=== PATIENT | male | born 1965 | race American Indian/Alaskan Native ===

== ENCOUNTER 2020-02-25 17:15 | Emergency (ER) | payer MEDICARE, MEDICAID ==
[~2020-02-25 17:15] MED LIST: Sodium Chloride 0.9% 10 ML Syringe FLUSH PRN
[2020-02-25] MEDS ORDERED: Metoprolol Tartrate 5 MG/5 ML SDV IV ONE (17:16)
--- NOTE | 2020-02-25 17:23 | EDM.PDOC ---
"ED HPI GENERAL MEDICAL PROBLEM - General Source of Information: Reports: EMS, Group Home Records, RN, RN Notes Reviewed History Limitations: Reports: No Limitations <RupertKaylanJackie Rupa - Last Filed: 02/25/20 19:43> <Ángela Black - Last Filed: 02/26/20 00:29> - General Chief Complaint: Neurological Problem Stated Complaint: IN BY [facility] Time Seen by Provider: 02/25/20 17:20 - History of Present Illness INITIAL COMMENTS - FREE TEXT/NARRATIVE: Patient presents to the ED via EMS from [facility] for seizure activity and fever. Per EMS report the patient had three witnessed seizures this afternoon at the [facility] and one witnessed seizure in the ambulance on the way to the ED. The patient does have a history of seizures following a TBI for which he takes Depakote. He presents to the ED pos-ictal following Ativan 4mg IM. (Jackie Emery) - Related Data Allergies Allergy/AdvReac Type Severity Reaction Status Date / Time No Known Allergies Allergy Verified 11/24/14 12:00 Home Meds: Home Meds Acetaminophen [Tylenol] 325 mg PO ASDIRECTED 02/25/20 [History] Divalproex Sodium [Depakote ER] 250 mg PO 02/25/20 [History] Divalproex Sodium [Depakote ER] 500 mg PO ASDIRECTED 02/25/20 [History] Magnesium Hydroxide [Milk of Magnesia] 15 ml PO DAILY PRN 02/25/20 [History] Sertraline [Zoloft] 100 mg PO BEDTIME 02/25/20 [History] atorvaSTATin Calcium [Atorvastatin Calcium] 10 mg PO 02/25/20 [History] bisacodyL [Dulcolax] 10 mg RC ASDIRECTED 02/25/20 [History] metFORMIN HCl [Glucophage] 1,000 mg PO BID 02/25/20 [History] ED ROS GENERAL - Review of Systems Review Of Systems: Comprehensive ROS is negative, except as noted in HPI. <Jackie Emery - Last Filed: 02/25/20 19:43> - Physical Exam Exam: See Below Exam Limited By: Altered Mental Status General Appearance: Obtunded, Moderate Distress Eye Exam: Bilateral Eye: PERRL Respiratory/Chest: Decreased Breath Sounds, Crackles. No: Wheezing, Stridor, Retractions Cardiovascular: Tachycardia Neuro Exam (Abbreviated): Other (Post-ictal). No: Alert, Oriented, CN II-XII Intact Extremities: No Pedal Edema, Normal Capillary Refill Skin Exam: Warm, Diaphoretic. No: Mottled, Pallor, Petechiae, Rash <Jackie Emery - Last Filed: 02/25/20 19:43> #1 Interpretation EKG Date: 02/25/20 Time: 17:23 Rhythm: Other Rate (Beats/Min): 127 [place]: LAD-Left [place] Deviation P-Wave: Present QRS: Wide ST-T: Depressed QT: Prolonged Comparison: NA - No Prior EKG <Jackie Emery - Last Filed: 02/25/20 19:43> Course <Jackie Emery - Last Filed: 02/25/20 19:43> <Ángela Black - Last Filed: 02/26/20 00:29> - Vital Signs Last Recorded V/S: Last Vital Signs Temp 98.7 F 02/25/20 19:36 Pulse 125 H 02/25/20 21:00 Resp 20 02/25/20 21:00 BP 170/91 H 02/25/20 21:00 Pulse Ox 97 02/25/20 21:00 - Orders/Labs/Meds Orders: Active Orders 24 hr Category Date Time Status CULTURE BLOOD [BC] Stat Lab 02/25/20 17:18 Received CULTURE BLOOD [BC] Stat Lab 02/25/20 19:33 Received VALPROIC ACID [REF] Stat Lab 02/25/20 17:18 Received Isolation [COMM] Routine Oth 02/25/20 20:07 Active Peripheral IV Insertion Adult [OM.PC] Stat Oth 02/25/20 17:08 Ordered Labs: Laboratory Tests 02/25/20 02/25/20 02/25/20 Range/Units 17:18 17:18 17:18 WBC 16.0 H (5.0-10.0) 10^3/uL RBC 5.02 (4.6-6.2) 10^6/uL Hgb 14.5 (14.0-18.0) g/dL Hct 42.5 (40.0-54.0) % MCV 84.7 (80-100) fL MCH 28.9 (27.0-34.0) pg MCHC 34.1 (33.0-35.0) g/dL Plt Count 248 (150-450) 10^3/uL Neut % (Auto) 72.6 (42.2-75.2) % Lymph % (Auto) 21.7 (20.5-50.1) % Coleman % (Auto) 5.1 (2-8) % Eos % (Auto) 0.4 L (1.0-3.0) % Baso % (Auto) 0.2 (0.0-1.0) % Sodium 130 L (136-145) mmol/L Potassium 4.2 (3.5-5.1) mmol/L Chloride 92 L (98-107) mmol/L Carbon Dioxide 25 (21-32) mmol/L Anion Gap 17.2 H (7-13) mEq/L BUN 8 (7-18) mg/dL Creatinine 1.05 (0.70-1.30) mg/dL Est Cr Clr Drug Dosing 87.25 mL/min Estimated GFR (MDRD) > 60 BUN/Creatinine Ratio 7.6 (No establ ref range) Glucose 252 H (74-99) mg/dL Lactic Acid 6.1 H* (0.4-2.0) mmol/L Calcium 8.5 (8.5-10.1) mg/dL Total Bilirubin 0.2 (0.2-1.0) mg/dL AST 21 (15-37) U/L ALT 52 (16-63) U/L Alkaline Phosphatase 107 (46-116) U/L Troponin I (0.000-0.056) ng/mL Total Protein 8.4 H (6.4-8.2) g/dL Albumin 4.2 (3.4-5.0) g/dL Globulin 4.2 Albumin/Globulin Ratio 1.0 Urine Color (YELLOW) Urine Appearance (CLEAR) Urine pH (5.0-9.0) Ur Specific [place] (1.005-1.030) Urine Protein (NEGATIVE) Urine Glucose (UA) (NEGATIVE) Urine Ketones (NEGATIVE) Urine Occult Blood (NEGATIVE) Urine Nitrite (NEGATIVE) Urine Bilirubin (NEGATIVE) Urine Urobilinogen (0.2-1.0) mg/dL Ur Leukocyte Esterase (NEGATIVE) U Hyaline Cast (Auto) Urine RBC /HPF Urine WBC (0-5/HPF) /HPF Ur Epithelial Cells (NOT SEEN) /HPF Amorphous Sediment (NOT SEEN) /HPF Urine Bacteria (0-FEW/HPF) /HPF Fine Granular Casts (NOT SEEN) /LPF Urine Mucus (NOT SEEN) /LPF Urine Opiates Screen (NEGATIVE) Ur Oxycodone Screen (NEGATIVE) Urine Methadone Screen (NEGATIVE) Ur Barbiturates Screen (NEGATIVE) U Tricyclic Antidepress (NEGATIVE) Ur Phencyclidine Scrn (NEGATIVE) Ur Amphetamine Screen (NEGATIVE) U Methamphetamines Scrn (NEGATIVE) Urine MDMA Screen (NEGATIVE) U Benzodiazepines Scrn (NEGATIVE) Urine Cocaine Screen (NEGATIVE) U Marijuana (THC) Screen (NEGATIVE) SARS CoV-2 RNA Rapid GERALDINE (NEGATIVE) 02/25/20 02/25/20 02/25/20 Range/Units 17:18 17:18 18:08 WBC (5.0-10.0) 10^3/uL RBC (4.6-6.2) 10^6/uL Hgb (14.0-18.0) g/dL Hct (40.0-54.0) % MCV (80-100) fL MCH (27.0-34.0) pg MCHC (33.0-35.0) g/dL Plt Count (150-450) 10^3/uL Neut % (Auto) (42.2-75.2) % Lymph % (Auto) (20.5-50.1) % Coleman % (Auto) (2-8) % Eos % (Auto) (1.0-3.0) % Baso % (Auto) (0.0-1.0) % Sodium (136-145) mmol/L Potassium (3.5-5.1) mmol/L Chloride (98-107) mmol/L Carbon Dioxide (21-32) mmol/L Anion Gap (7-13) mEq/L BUN (7-18) mg/dL Creatinine (0.70-1.30) mg/dL Est Cr Clr Drug Dosing mL/min Estimated GFR (MDRD) BUN/Creatinine Ratio (No establ ref range) Glucose (74-99) mg/dL Lactic Acid (0.4-2.0) mmol/L Calcium (8.5-10.1) mg/dL Total Bilirubin (0.2-1.0) mg/dL AST (15-37) U/L ALT (16-63) U/L Alkaline Phosphatase (46-116) U/L Troponin I < 0.017 (0.000-0.056) ng/mL Total Protein (6.4-8.2) g/dL Albumin (3.4-5.0) g/dL Globulin Albumin/Globulin Ratio Urine Color Yellow (YELLOW) Urine Appearance Slightly cloudy (CLEAR) Urine pH 6.5 (5.0-9.0) Ur Specific [place] >= 1.030 (1.005-1.030) Urine Protein 100 H (NEGATIVE) Urine Glucose (UA) 500 H (NEGATIVE) Urine Ketones Trace H (NEGATIVE) Urine Occult Blood Moderate H (NEGATIVE) Urine Nitrite Negative (NEGATIVE) Urine Bilirubin Negative (NEGATIVE) Urine Urobilinogen 0.2 (0.2-1.0) mg/dL Ur Leukocyte Esterase Negative (NEGATIVE) U Hyaline Cast (Auto) Few Urine RBC 10-20 H /HPF Urine WBC 0-5 (0-5/HPF) /HPF Ur Epithelial Cells Rare (NOT SEEN) /HPF Amorphous Sediment Few (NOT SEEN) /HPF Urine Bacteria Rare (0-FEW/HPF) /HPF Fine Granular Casts Occasional H (NOT SEEN) /LPF Urine Mucus Few H (NOT SEEN) /LPF Urine Opiates Screen (NEGATIVE) Ur Oxycodone Screen (NEGATIVE) Urine Methadone Screen (NEGATIVE) Ur Barbiturates Screen (NEGATIVE) U Tricyclic Antidepress (NEGATIVE) Ur Phencyclidine Scrn (NEGATIVE) Ur Amphetamine Screen (NEGATIVE) U Methamphetamines Scrn (NEGATIVE) Urine MDMA Screen (NEGATIVE) U Benzodiazepines Scrn (NEGATIVE) Urine Cocaine Screen (NEGATIVE) U Marijuana (THC) Screen (NEGATIVE) SARS CoV-2 RNA Rapid GERALDINE Negative (NEGATIVE) 02/25/20 Range/Units 18:08 WBC (5.0-10.0) 10^3/uL RBC (4.6-6.2) 10^6/uL Hgb (14.0-18.0) g/dL Hct (40.0-54.0) % MCV (80-100) fL MCH (27.0-34.0) pg MCHC (33.0-35.0) g/dL Plt Count (150-450) 10^3/uL Neut % (Auto) (42.2-75.2) % Lymph % (Auto) (20.5-50.1) % Coleman % (Auto) (2-8) % Eos % (Auto) (1.0-3.0) % Baso % (Auto) (0.0-1.0) % Sodium (136-145) mmol/L Potassium (3.5-5.1) mmol/L Chloride (98-107) mmol/L Carbon Dioxide (21-32) mmol/L Anion Gap (7-13) mEq/L BUN (7-18) mg/dL Creatinine (0.70-1.30) mg/dL Est Cr Clr Drug Dosing mL/min Estimated GFR (MDRD) BUN/Creatinine Ratio (No establ ref range) Glucose (74-99) mg/dL Lactic Acid (0.4-2.0) mmol/L Calcium (8.5-10.1) mg/dL Total Bilirubin (0.2-1.0) mg/dL AST (15-37) U/L ALT (16-63) U/L Alkaline Phosphatase (46-116) U/L Troponin I (0.000-0.056) ng/mL Total Protein (6.4-8.2) g/dL Albumin (3.4-5.0) g/dL Globulin Albumin/Globulin Ratio Urine Color (YELLOW) Urine Appearance (CLEAR) Urine pH (5.0-9.0) Ur Specific [place] (1.005-1.030) Urine Protein (NEGATIVE) Urine Glucose (UA) (NEGATIVE) Urine Ketones (NEGATIVE) Urine Occult Blood (NEGATIVE) Urine Nitrite (NEGATIVE) Urine Bilirubin (NEGATIVE) Urine Urobilinogen (0.2-1.0) mg/dL Ur Leukocyte Esterase (NEGATIVE) U Hyaline Cast (Auto) Urine RBC /HPF Urine WBC (0-5/HPF) /HPF Ur Epithelial Cells (NOT SEEN) /HPF Amorphous Sediment (NOT SEEN) /HPF Urine Bacteria (0-FEW/HPF) /HPF Fine Granular Casts (NOT SEEN) /LPF Urine Mucus (NOT SEEN) /LPF Urine Opiates Screen Negative (NEGATIVE) Ur Oxycodone Screen Negative (NEGATIVE) Urine Methadone Screen Negative (NEGATIVE) Ur Barbiturates Screen Negative (NEGATIVE) U Tricyclic Antidepress Negative (NEGATIVE) Ur Phencyclidine Scrn Negative (NEGATIVE) Ur Amphetamine Screen Negative (NEGATIVE) U Methamphetamines Scrn Negative (NEGATIVE) Urine MDMA Screen Negative (NEGATIVE) U Benzodiazepines Scrn Negative (NEGATIVE) Urine Cocaine Screen Negative (NEGATIVE) U Marijuana (THC) Screen Negative (NEGATIVE) SARS CoV-2 RNA Rapid GERALDINE (NEGATIVE) Meds: Medications Discontinued Medications Generic Name Dose Route Start Last Admin Trade Name Freq PRN Reason Stop Dose Admin Acetaminophen 650 mg 02/25/20 19:31 02/25/20 19:36 Tylenol RECTAL 02/25/20 19:32 650 mg NOW STA Administration Adenosine Confirm 02/25/20 17:38 02/25/20 18:27 Adenocard Administered 02/25/20 17:39 Not Given Dose 6 mg .ROUTE .STK-MED ONE Sodium Chloride 1,000 mls @ 999 mls/hr 02/25/20 18:05 02/25/20 17:45 Normal Saline IV 02/25/20 19:05 999 mls/hr .BOLUS ONE Administration Piperacillin Sod/Tazobactam 100 mls @ 200 mls/hr 02/25/20 19:16 02/25/20 19:26 Sod 3.375 gm/ Sodium Chloride IV 02/25/20 19:45 200 mls/hr ONETIME ONE Administration Vancomycin HCl 1.75 gm/ Sodium 500 mls @ 334 mls/hr 02/25/20 19:17 02/25/20 19:47 Chloride IV 02/25/20 20:46 334 mls/hr ONETIME ONE Administration Levetiracetam 1,000 mg/ Premix 200 mls @ 800 mls/hr 02/25/20 19:19 02/25/20 19:26 IV 02/25/20 19:20 800 mls/hr ONETIME ONE Administration Metoprolol Tartrate Confirm 02/25/20 17:43 02/25/20 18:27 Lopressor Administered 02/25/20 17:44 Not Given Dose 5 mg .ROUTE .STK-MED ONE Metoprolol Tartrate 2.5 mg 02/25/20 17:45 02/25/20 17:45 Lopressor IVPUSH 02/25/20 17:46 2.5 mg ONETIME ONE Administration Sodium Chloride 10 ml 02/25/20 17:08 Saline Flush FLUSH ASDIRECTED PRN Keep Vein Open - Radiology Interpretation Free Text/Narrative:: [facility] [place] [facility] Final Radiology Report Call: [phone] assistance Online chat: [email or web address] Name: JAVIER TESFAYE Age: 54Years M Date: 02/25/2020 SSN: -- : [id number] Study: CT HEAD WO CONT Requesting Physician: Jackie Emery Images: [id number] Addl Studies: Provided Clinical History: Seizure Contrast: Without Contrast Medium: Contrast Amount: Contrast Method: Page 1 of 2 PROCEDURE INFORMATION: Exam: CT Head Without Contrast Exam date and time: 02/25/2020 6:10 PM Age: 54 years old Clinical indication: Other: Seizure TECHNIQUE: Imaging protocol: Computed tomography of the head without contrast. Radiation optimization: All CT scans at this facility use at least one of these dose optimization techniques: automated exposure control; mA and/or kV adjustment per patient size (includes targeted exams where dose is matched to clinical indication); or iterative reconstruction. COMPARISON: No relevant prior studies available. FINDINGS: Brain: There is extensive loss of brain substance/atrophy involving the temporal lobes bilaterally left greater than right. May be sequela of prior infarctions and or atrophy. Old infarction/atrophy extends into the right frontal lobe of the brain as well. Cerebral ventricles: No ventriculomegaly. Bones/joints: There is some deformity with lucency along the right aspect of the nasal bone. Probably longstanding however correlate for point tenderness are any recent trauma in this region. Paranasal sinuses: Visualized sinuses are unremarkable. No fluid levels. Mastoid air cells: Visualized mastoid air cells are well aerated. Soft tissues: Unremarkable. IMPRESSION: 1. Marked brain substance loss/atrophy involving both right and left temporal lobes as well as a portion of the right frontal lobe compatible with old infarctions and/or extensive atrophy. 2. No definite evidence for acute intracranial hemorrhage. JAVIER TESFAYE | Final Radiology Report CONFIDENTIALITY STATEMENT This report is intended only for use by the referring physician, and only in accordance with law. If you received this in error, call [phone]. Page 2 of 2 3. MRI would be more sensitive in the detection of acute ischemia especially in this patient with extensive temporal lobe abnormality. 4. Deformity/lucency along the right aspect of the nasal bone may be longstanding, however correlate for any point tenderness or acute trauma in this region to exclude a small fracture. Thank you for allowing us to participate in the care of your patient. Dictated and Authenticated by: Agustin Peterson MD 02/25/2020 6:46 PM Central Time ([place] & [place]) [facility] Final Radiology Report Call: [phone] assistance Online chat: [email or web address] Name: JAVIER TESFAYE Age: 54Years M Date: 02/25/2020 SSN: -- : [id number] Study: CT CHEST WO CONT Requesting Physician: Jackie Emery Images: [id number] Addl Studies: Provided Clinical History: Elevated WBC Contrast: Without Contrast Medium: Contrast Amount: Contrast Method: Page 1 of 2 PROCEDURE INFORMATION: Exam: CT Chest Without Contrast Exam date and time: 02/25/2020 6:10 PM Age: 54 years old Clinical indication: Other: Seizure; Additional info: Elevated wbc TECHNIQUE: Imaging protocol: Computed tomography of the chest without contrast. Radiation optimization: All CT scans at this facility use at least one of these dose optimization techniques: automated exposure control; mA and/or kV adjustment per patient size (includes targeted exams where dose is matched to clinical indication); or iterative reconstruction. COMPARISON: No relevant prior studies available. FINDINGS: Lungs: Linear atelectasis or scarring at each lung base. No significant ground- glass densities, linear interstitial pulmonary thickening, or consolidation. Pleural space: There is no significant effusion. No pneumothorax. No mass, plaque or calcification. Heart: Normal heart size. No pericardial effusion. Mediastinal space: No pneumomediastinum, hemomediastinum, or stranding of retrosternal fat. Aorta: No aortic aneurysm. Lymph nodes: No enlarged axillary, mediastinal, or hilar lymph nodes. Liver: There is moderate fatty liver replacement. Bones/joints: Incidental os acromiale right shoulder.There is age-appropriate spondylosis of the spine. There is probably a nondisplaced mid sternal fracture. Soft tissues: Unremarkable. IMPRESSION: 1. There is probably a nondisplaced mid sternal fracture. JAVIER TESFAYE | Final Radiology Report CONFIDENTIALITY STATEMENT This report is intended only for use by the referring physician, and only in accordance with law. If you received this in error, call [phone]. Page 2 of 2 2. Linear atelectasis or scarring at each lung base. Thank you for allowing us to participate in the care of your patient. Dictated and Authenticated by: Jeff Mata MD 02/25/2020 6:42 PM Central Time ([place] & [place]) (Jackie Emery) - Re-Assessments/Exams Free Text/Narrative Re-Assessment/Exam: Care assumed at change of shift. Patient appears comfortable, resting. occasionally opens eyes. repositions arms on bed further siezure activity. Delay in tx awaiting room assignment at [place]. Tx via [facility] (Ángela Black) Departure <Jackie Emery - Last Filed: 02/25/20 19:43> - Departure Time of Disposition: 22:55 - Discharge Information *PRESCRIPTION DRUG MONITORING PROGRAM REVIEWED*: No *COPY OF PRESCRIPTION DRUG MONITORING REPORT IN PATIENT MARLIN: No <Ángela Black - Last Filed: 02/26/20 00:29> - Departure Disposition: DC/[facility]fer to [facility] Clinical Impression: Seizure Sepsis Qualifiers: Sepsis type: sepsis due to unspecified organism Sepsis acute organ dysfunction status: unspecified Qualified Code(s): A41.9 - Sepsis, unspecified organism - Discharge Information Referrals: PCP,None [Primary Care Provider] - Forms: ED Department Discharge, Interfacility Transfer EMTALA Sepsis Event Note (ED) - Focused Exam Vital Signs: Vital Signs Temp Temp Pulse Pulse Resp BP BP 02/25/20 21:00 125 H 20 170/91 H 02/25/20 19:36 98.7 F 02/25/20 19:09 98 16 158/69 H 02/25/20 17:45 173 H 171/90 H 02/25/20 17:29 100.1 F 129 H 15 156/74 H Pulse Ox 02/25/20 21:00 97 02/25/20 19:36 02/25/20 19:09 96 02/25/20 17:45 02/25/20 17:29 97 - My Orders Last 24 Hours: My Active Orders 02/25/20 20:07 Isolation [COMM] Routine - Assessment/Plan Last 24 Hours: My Active Orders 02/25/20 20:07 Isolation [COMM] Routine"
[2020-02-25] MEDS ORDERED: Adenosine 6 MG/2 ML SDV ONE (17:38)
[2020-02-25] MEDS ORDERED: Metoprolol Tartrate 5 MG/5 ML SDV ONE (17:43)
[2020-02-25] MEDS ORDERED: Metoprolol Tartrate 5 MG/5 ML SDV IVPUSH ONE (17:45)
[2020-02-25 17:50] LABS: ANION GAP 17.2 mEq/L (7-13); CHLORIDE,CL 92 mmol/L (98-107); SODIUM,NA 130 mmol/L (136-145)
[2020-02-25] MEDS ORDERED: Sodium Chloride 0.9% 1,000 ML IV ONE (18:05)
--- NOTE | 2020-02-25 18:43 | CT ---
PROCEDURE INFORMATION: Exam: CT Chest Without Contrast Exam date and time: 02/25/2020 6:10 PM Age: 54 years old Clinical indication: Other: Seizure; Additional info: Elevated wbc TECHNIQUE: Imaging protocol: Computed tomography of the chest without contrast. Radiation optimization: All CT scans at this facility use at least one of these dose optimization techniques: automated exposure control; mA and/or kV adjustment per patient size (includes targeted exams where dose is matched to clinical indication); or iterative reconstruction. COMPARISON: No relevant prior studies available. FINDINGS: Lungs: Linear atelectasis or scarring at each lung base. No significant ground-glass densities, linear interstitial pulmonary thickening, or consolidation. Pleural space: There is no significant effusion. No pneumothorax. No mass, plaque or calcification. Heart: Normal heart size. No pericardial effusion. Mediastinal space: No pneumomediastinum, hemomediastinum, or stranding of retrosternal fat. Aorta: No aortic aneurysm. Lymph nodes: No enlarged axillary, mediastinal, or hilar lymph nodes. Liver: There is moderate fatty liver replacement. Bones/joints: Incidental os acromiale right shoulder.There is age-appropriate spondylosis of the spine. There is probably a nondisplaced mid sternal fracture. Soft tissues: Unremarkable. IMPRESSION: 1. There is probably a nondisplaced mid sternal fracture. 2. Linear atelectasis or scarring at each lung base.
--- NOTE | 2020-02-25 18:46 | CT ---
PROCEDURE INFORMATION: Exam: CT Head Without Contrast Exam date and time: 02/25/2020 6:10 PM Age: 54 years old Clinical indication: Other: Seizure TECHNIQUE: Imaging protocol: Computed tomography of the head without contrast. Radiation optimization: All CT scans at this facility use at least one of these dose optimization techniques: automated exposure control; mA and/or kV adjustment per patient size (includes targeted exams where dose is matched to clinical indication); or iterative reconstruction. COMPARISON: No relevant prior studies available. FINDINGS: Brain: There is extensive loss of brain substance/atrophy involving the temporal lobes bilaterally left greater than right. May be sequela of prior infarctions and or atrophy. Old infarction/atrophy extends into the right frontal lobe of the brain as well. Cerebral ventricles: No ventriculomegaly. Bones/joints: There is some deformity with lucency along the right aspect of the nasal bone. Probably longstanding however correlate for point tenderness are any recent trauma in this region. Paranasal sinuses: Visualized sinuses are unremarkable. No fluid levels. Mastoid air cells: Visualized mastoid air cells are well aerated. Soft tissues: Unremarkable. IMPRESSION: 1. Marked brain substance loss/atrophy involving both right and left temporal lobes as well as a portion of the right frontal lobe compatible with old infarctions and/or extensive atrophy. 2. No definite evidence for acute intracranial hemorrhage. 3. MRI would be more sensitive in the detection of acute ischemia especially in this patient with extensive temporal lobe abnormality. 4. Deformity/lucency along the right aspect of the nasal bone may be longstanding, however correlate for any point tenderness or acute trauma in this region to exclude a small fracture.
[2020-02-25] MEDS ORDERED: Piperacillin/Tazobactam 3.375 GM in Sodium Chloride 0.9% 100 ML IV ONE (19:16)
[2020-02-25] MEDS ORDERED: Vancomycin 1.75 GM in Sodium Chloride 0.9% 500 ML IV ONE (19:17)
[2020-02-25] MEDS ORDERED: levETIRAcetam in NaCl (iso-os) 1,000 MG in Premix Bag 1 BAG IV ONE ×2 (19:19)
[2020-02-25] MEDS ORDERED: Acetaminophen 650 MG Supp RECTAL STA (19:31)
== END 2020-02-25 22:11 ==
LOC: DL.ED 17:15
DX: A41.9 Sepsis, unspecified organism (principal); R56.9 Unspecified convulsions; Z79.899 Other long term (current) drug therapy; Z20.828 Contact with and (suspected) exposure to other viral communicable diseases
CPT/HCPCS: 36415; 70450; 71250; 80053; 80164; 80305-QW; 81001; 82962; 83605; 84484; 85025; 87040; 87804; 93005; 96365; 96367; 96375; 99285-25; A9270-GY; J1953; J2543; J3370; J3490; J7030; J7040; J7050; U0002

== ENCOUNTER 2022-10-01 01:22 | Emergency (ER) | payer MEDICARE, MEDICAID ==
[2022-10-01 01:48] LABS: HEMATOCRIT 41.8 % (40.0-54.0); HEMOGLOBIN 14.7 g/dL (14.0-18.0); MEAN CORPUSCULAR HEMOGLOBIN 30.3 pg (27.0-34.0); MEAN CORPUSCULAR HGB CONC 35.2 g/dL (33.0-35.0); MEAN CORPUSCULAR VOLUME 86.2 fL (80-100); PLATELET COUNT,PLT 247 10^3/uL (150-450); RED BLOOD CELL COUNT 4.85 10^6/uL (4.6-6.2); WHITE BLOOD CELL COUNT,WBC 18.5 10^3/uL (5.0-10.0)
[2022-10-01 02:01] LABS: BASOPHILS PERCENT AUTO 0.2 % (0.0-1.0); EOSINOPHILS PERCENT AUTO 0.3 % (1.0-3.0); MONOCYTES PERCENT AUTO 6.6 % (2-8); NEUTROPHILS PERCENT AUTO 79.9 % (42.2-75.2)
[2022-10-01 02:08] LABS: A/G RATIO 1.1; ALBUMIN 3.7 g/dL (3.4-5.0); BLOOD UREA NITROGEN,BUN 10 mg/dL (7-18); BUN/CREATININE RATIO 11.6 (No establ ref range); CALCIUM 7.9 mg/dL (8.5-10.1); CARBON DIOXIDE,CO2 26 mmol/L (21-32); CHLORIDE,CL 93 mmol/L (98-107); CREATININE 0.86 mg/dL (0.70-1.30); GLUCOSE RANDOM 206 mg/dL (70-99); PROTEIN TOTAL,TP 7.1 g/dL (6.4-8.2); SODIUM,NA 128 mmol/L (136-145)
[2022-10-01 02:09] LABS: ALANINE AMINOTRANSFERASE,ALT 23 U/L (16-63); ALKALINE PHOSPHATASE 101 U/L (46-116); ASPARTATE AMNIOTRANSFERASE,AST 9 U/L (15-37); BILIRUBIN TOTAL 0.1 mg/dL (0.2-1.0)
[2022-10-01 02:12] LABS: ESTIMATED GFR 100 mL/min (>=60)
[2022-10-01] MEDS: levETIRAcetam in NaCl (iso-os) 1,500 MG in Premix Bag 1 BAG IV ONE ×2 (02:13)
[2022-10-01] MEDS: Sodium Chloride 0.9% 1,000 ML IV SCH (02:13)
[2022-10-01] MEDS: Sodium Chloride 0.9% 10 ML Syringe FLUSH PRN (02:14)
[2022-10-01 02:21] LABS: EOSINOPHILS PERCENT MAN 2 % (1-3); LYMPHOCYTES PERCENT MAN 18 % (20-50); MONOCYTES PERCENT MAN 5 % (2-8); SEG NEUTROPHILS PERCENT MAN 75 % (42-75)
[2022-10-01 04:10] LABS: BASE EXCESS VENOUS -0.2 mmol/l ((-2)-(+3)); BICARBONATE,VENOUS 28 mmol/l (19-25); O2 DELIVERY DEVICE OM; PH,VENOUS 7.28 (7.31-7.41); PO2 VENOUS 41 mmHg (35-42)
[2022-10-01 04:12] LABS: PCO2 VENOUS 61 mmHg (41-51)
[2022-10-01] MEDS: LORazepam 2 MG/ML SDV IVPUSH ONE (06:30)
[2022-10-01] MEDS: Ondansetron 4 MG/2 ML SDV IVPUSH ONE (06:33)
[2022-10-01] MEDS: HYDROmorphone 1 MG/ML Syringe IVPUSH ONE (06:35)
[2022-10-01] MEDS: Ondansetron 4 MG/2 ML SDV ONE (06:40)
[2022-10-01] MEDS: LORazepam 2 MG/ML SDV ONE (06:41)
== END 2022-10-01 07:59 ==
LOC: DL.ED 01:22
DX: G40.901 Epilepsy, unspecified, not intractable, with status epilepticus (principal); R09.02 Hypoxemia; E87.1 Hypo-osmolality and hyponatremia; G93.89 Other specified disorders of brain; D72.823 Leukemoid reaction; E78.00 Pure hypercholesterolemia, unspecified; E11.9 Type 2 diabetes mellitus without complications; Z79.899 Other long term (current) drug therapy
CPT/HCPCS: 36415; 70450; 71045; 80053; 80164; 82803; 84484; 85025; 87040; 93005; 94762; 96361; 96374; 96375; 99285; J1170; J1953; J2060; J2405; J7030; 93010; 99291; 99292; J3490

== ENCOUNTER 2022-12-23 09:33 | Inpatient (IN) | payer MEDICAID, MEDICARE ==
[2022-12-23] MEDS ORDERED: Sodium Chloride 0.9% 10 ML Syringe FLUSH PRN (09:41)
[2022-12-23] MEDS ORDERED: Acetaminophen 650 MG Supp RECTAL STA (09:43)
[2022-12-23 09:56] LABS: BASOPHILS PERCENT AUTO 0.2 % (0.0-1.0); EOSINOPHILS PERCENT AUTO 0.1 % (1.0-3.0); HEMATOCRIT 44.4 % (40.0-54.0); HEMOGLOBIN 15.5 g/dL (14.0-18.0); LYMPHOCYTES PERCENT AUTO 7.4 % (20.5-50.1); MEAN CORPUSCULAR HEMOGLOBIN 29.8 pg (27.0-34.0); MEAN CORPUSCULAR HGB CONC 34.9 g/dL (33.0-35.0); MEAN CORPUSCULAR VOLUME 85.2 fL (80-100); NEUTROPHILS PERCENT AUTO 87.3 % (42.2-75.2); PLATELET COUNT,PLT 228 10^3/uL (150-450); RED BLOOD CELL COUNT 5.21 10^6/uL (4.6-6.2); WHITE BLOOD CELL COUNT,WBC 16.3 10^3/uL (5.0-10.0)
[2022-12-23] MEDS ORDERED: Sodium Chloride 0.9% 1,000 ML IV ONE (10:14)
[2022-12-23 10:27] LABS: A/G RATIO 0.9; ALANINE AMINOTRANSFERASE,ALT 16 U/L (16-63); ALBUMIN 3.8 g/dL (3.4-5.0); ALKALINE PHOSPHATASE 107 U/L (46-116); ANION GAP 14.9 mEq/L (7-13); ASPARTATE AMNIOTRANSFERASE,AST 8 U/L (15-37); BILIRUBIN TOTAL 0.2 mg/dL (0.2-1.0); BLOOD UREA NITROGEN,BUN 9 mg/dL (7-18); BUN/CREATININE RATIO 9.6 (No establ ref range); CALCIUM 8.4 mg/dL (8.5-10.1); CARBON DIOXIDE,CO2 27 mmol/L (21-32); CHLORIDE,CL 91 mmol/L (98-107); CREATININE 0.94 mg/dL (0.70-1.30); ESTIMATED GFR 94 mL/min (>=60); GLUCOSE RANDOM 252 mg/dL (70-99); POTASSIUM,K 3.9 mmol/L (3.5-5.1); PROTEIN TOTAL,TP 7.8 g/dL (6.4-8.2); SODIUM,NA 129 mmol/L (136-145)
[2022-12-23 10:50] LABS: APPEARANCE,URINE CLEAR (CLEAR); BILIRUBIN,URINE NEGATIVE (NEGATIVE); COLOR,URINE YELLOW (YELLOW); GLUCOSE,URINE 500 (NEGATIVE); KETONES,URINE NEGATIVE (NEGATIVE); LEUKOCYTE ESTERASE,URINE NEGATIVE (NEGATIVE); NITRITE,URINE NEGATIVE (NEGATIVE); OCCULT BLOOD,URINE TRACE-INTACT (NEGATIVE); PROTEIN,URINE >=300 (NEGATIVE); UROBILINOGEN,URINE 0.2 mg/dL (0.2-1.0)
[2022-12-23 10:58] LABS: AMORPHOUS SEDIMENT,URINE FEW /HPF (NOT SEEN); HYALINE CASTS,URINE FEW
[2022-12-23 11:07] LABS: RBC,URINE 0-5 /HPF (0-5)
[2022-12-23 11:08] LABS: BACTERIA,URINE RARE /HPF (0-FEW/HPF)
[2022-12-23 11:09] LABS: WBC,URINE 0-5 /HPF (0-5/HPF)
[2022-12-23 11:11] LABS: EPITHELIAL CELLS,URINE RARE /HPF (NOT SEEN)
[2022-12-23] MEDS ORDERED: levETIRAcetam in NaCl (iso-os) 500 MG in Premix Bag 1 BAG IV ONE ×2 (11:24)
[2022-12-23 11:25] LABS: LACTIC ACID 4.1 mmol/L (0.4-2.0)
[2022-12-23] MEDS ORDERED: cefTRIAXone 1 GM Vial IVPUSH ONE (11:32)
[2022-12-23 11:41] LABS: AMPHETAMINES,URINE NEGATIVE (NEGATIVE); BARBITURATES,URINE NEGATIVE (NEGATIVE); BENZODIAZEPINE,URINE NEGATIVE (NEGATIVE); MDMA (ECSTASY), URINE NEGATIVE (NEGATIVE); METHADONE,URINE NEGATIVE (NEGATIVE); METHAMPHETAMINES,URINE NEGATIVE (NEGATIVE); OPIATES,URINE NEGATIVE (NEGATIVE); OXYCODONE,URINE NEGATIVE (NEGATIVE); PHENCYCLIDINE,URINE NEGATIVE (NEGATIVE); TCA,URINE NEGATIVE (NEGATIVE)
[2022-12-23] MEDS ORDERED: Sodium Chloride 0.9% 2,000 ML IV ONE (11:42)
[2022-12-23] MEDS ORDERED: Magnesium Hydroxide 400 MG/5 ML Susp 30 ML Cup PO PRN (13:10)
[2022-12-23] MEDS ORDERED: Naloxone 2 MG/2 ML Syringe IVPUSH PRN (13:10)
[2022-12-23] MEDS ORDERED: HYDROmorphone 0.5 MG/0.5 ML Syringe IVPUSH PRN (13:10)
[2022-12-23] MEDS ORDERED: Albuterol/Ipratropium 3.0-0.5 MG/3 ML Neb Soln NEB PRN (13:10)
[2022-12-23] MEDS ORDERED: Polyethylene Glycol 3350 Powder 17 GM Packet PO PRN (13:10)
[2022-12-23] MEDS ORDERED: Ondansetron 4 MG/2 ML SDV IVPUSH PRN (13:10)
[2022-12-23] MEDS ORDERED: Acetaminophen/oxyCODONE 325-5 MG Tab PO PRN (13:10)
[2022-12-23] MEDS ORDERED: Sennosides/Docusate Sodium 50-8.6 MG Tab PO PRN (13:10)
[2022-12-23] MEDS ORDERED: Acetaminophen 325 MG Tab PO PRN (13:10)
[2022-12-23] MEDS ORDERED: hydrALAZINE 20 MG/ML SDV IVPUSH PRN (13:13)
[2022-12-23] MEDS ORDERED: Metoprolol Tartrate 5 MG/5 ML SDV IVPUSH PRN (13:13)
[2022-12-23] MEDS ORDERED: LORazepam 2 MG/ML SDV IVPUSH PRN (13:13)
[2022-12-23] MEDS ORDERED: Flumazenil 0.1 MG/ML 5 ML MDV IVPUSH PRN (13:13)
[2022-12-23] MEDS ORDERED: levETIRAcetam in NaCl (iso-os) 1,000 MG in Premix Bag 1 BAG IV ONE ×2 (13:14)
[2022-12-23] MEDS ORDERED: Glucagon,Human Recombinant 1 MG Vial IM PRN (13:15)
[2022-12-23] MEDS ORDERED: 50% Dextrose in Water 50 ML Syringe IVPUSH PRN (13:15)
[2022-12-23] MEDS ORDERED: cloNIDine 0.1 MG Tab PO PRN (13:16)
[2022-12-23] MEDS ORDERED: MVI, Adult with Vitamin K 10 ML, Folic Acid 1 MG, Thiamine 100 MG in Lactated Ringers 1... IV ONE ×4 (14:10)
[2022-12-23] MEDS ORDERED: Dextrose 5%-0.9% NaCl 1,000 ML IV SCH (15:00)
[2022-12-23] MEDS: Insulin Lispro 100 Units/ML 3 ML Vial SUBCUT SCH (19:07)
[2022-12-23] MEDS: Piperacillin/Tazobactam 3.375 GM in Sodium Chloride 0.9% 100 ML IV SCH (19:16)
[2022-12-23] MEDS: Saccharomyces Boulardii (Probiotic) 250 MG Cap PO SCH (20:31)
[2022-12-23 21:48] LABS: A/G RATIO 0.94; ANION GAP 11.7 mEq/L (7-13); BILIRUBIN TOTAL 0.4 mg/dL (0.2-1.0); BUN/CREATININE RATIO 10.3 (No establ ref range); CALCIUM 7.5 mg/dL (8.5-10.1); CREATININE 0.68 mg/dL (0.70-1.30); EST CRCL DRUG DOSING (CG) 129.97 mL/min; POTASSIUM,K 3.7 mmol/L (3.5-5.1); PROTEIN TOTAL,TP 6.2 g/dL (6.4-8.2)
[2022-12-24] MEDS: Piperacillin/Tazobactam 3.375 GM in Sodium Chloride 0.9% 100 ML IV SCH ×4 (00:29→17:31)
[2022-12-24] MEDS: Pantoprazole 40 MG Vial IVPUSH SCH (05:50)
[2022-12-24 06:08] LABS: BASOPHILS PERCENT AUTO 0.1 % (0.0-1.0); HEMATOCRIT 36.8 % (40.0-54.0); HEMOGLOBIN 12.7 g/dL (14.0-18.0); LYMPHOCYTES PERCENT AUTO 11.7 % (20.5-50.1); MEAN CORPUSCULAR HEMOGLOBIN 29.7 pg (27.0-34.0); MEAN CORPUSCULAR HGB CONC 34.5 g/dL (33.0-35.0); MEAN CORPUSCULAR VOLUME 86.2 fL (80-100); MONOCYTES PERCENT AUTO 11.3 % (2-8); NEUTROPHILS PERCENT AUTO 76.9 % (42.2-75.2); PLATELET COUNT,PLT 167 10^3/uL (150-450); RED BLOOD CELL COUNT 4.27 10^6/uL (4.6-6.2); WHITE BLOOD CELL COUNT,WBC 8.6 10^3/uL (5.0-10.0)
[2022-12-24 06:45] LABS: ALBUMIN 2.8 g/dL (3.4-5.0); ANION GAP 10.6 mEq/L (7-13); BILIRUBIN TOTAL 0.4 mg/dL (0.2-1.0); BUN/CREATININE RATIO 9.8 (No establ ref range); CALCIUM 7.7 mg/dL (8.5-10.1); CREATININE 0.61 mg/dL (0.70-1.30); EST CRCL DRUG DOSING (CG) 144.88 mL/min; MAGNESIUM 1.7 mg/dL (1.8-2.4); POTASSIUM,K 3.6 mmol/L (3.5-5.1); PROTEIN TOTAL,TP 5.9 g/dL (6.4-8.2)
[2022-12-24 06:48] LABS: A/G RATIO 0.9
[2022-12-24] MEDS: Insulin Lispro 100 Units/ML 3 ML Vial SUBCUT SCH ×3 (08:20→17:18)
[2022-12-24] MEDS ORDERED: LORazepam 2 MG/ML SDV IV PRN (08:50)
[2022-12-24] MEDS ORDERED: LORazepam 0.5 MG Tab PO PRN (08:50)
[2022-12-24] MEDS ORDERED: levETIRAcetam in NaCl (iso-os) 1,500 MG in Premix Bag 1 BAG IV SCH ×2 (09:00)
[2022-12-24] MEDS ORDERED: Thiamine 100 MG in Sodium Chloride 0.9% 50 ML IV SCH (09:00)
[2022-12-24] MEDS: Multivitamin Tab PO SCH (09:22)
[2022-12-24] MEDS: Folic Acid 1 MG Tab PO SCH (09:22)
[2022-12-24] MEDS: Saccharomyces Boulardii (Probiotic) 250 MG Cap PO SCH ×2 (09:22→21:13)
[2022-12-24] MEDS: levETIRAcetam in NaCl (iso-os) 1,000 MG in Premix Bag 1 BAG IV SCH ×4 (09:28→21:07)
[2022-12-24] MEDS ORDERED: Magnesium Sulfate/Water 2 GM in Premix Bag 1 BAG IV ONE (09:39)
[2022-12-25] MEDS: Piperacillin/Tazobactam 3.375 GM in Sodium Chloride 0.9% 100 ML IV SCH ×4 (02:14→21:02)
[2022-12-25 06:06] LABS: BASOPHILS PERCENT AUTO 0.2 % (0.0-1.0); EOSINOPHILS PERCENT AUTO 0.1 % (1.0-3.0); HEMATOCRIT 40.1 % (40.0-54.0); HEMOGLOBIN 13.9 g/dL (14.0-18.0); MEAN CORPUSCULAR HEMOGLOBIN 29.9 pg (27.0-34.0); MEAN CORPUSCULAR HGB CONC 34.7 g/dL (33.0-35.0); MEAN CORPUSCULAR VOLUME 86.2 fL (80-100); MONOCYTES PERCENT AUTO 12.8 % (2-8); NEUTROPHILS PERCENT AUTO 72.9 % (42.2-75.2); PLATELET COUNT,PLT 180 10^3/uL (150-450); RED BLOOD CELL COUNT 4.65 10^6/uL (4.6-6.2); WHITE BLOOD CELL COUNT,WBC 8.7 10^3/uL (5.0-10.0)
[2022-12-25] MEDS: Pantoprazole 40 MG Vial IVPUSH SCH (06:32)
[2022-12-25] MEDS: Saccharomyces Boulardii (Probiotic) 250 MG Cap PO SCH ×2 (09:10→21:03)
[2022-12-25] MEDS: Insulin Lispro 100 Units/ML 3 ML Vial SUBCUT SCH ×3 (09:10→17:49)
[2022-12-25] MEDS: Divalproex Sodium 250 MG Tab.ER PO SCH ×2 (09:10→21:03)
[2022-12-25] MEDS: Folic Acid 1 MG Tab PO SCH (09:10)
[2022-12-25] MEDS: Multivitamin Tab PO SCH (09:10)
[2022-12-25] MEDS: levETIRAcetam in NaCl (iso-os) 1,000 MG in Premix Bag 1 BAG IV SCH ×2 (09:15)
[2022-12-25] MEDS: Thiamine 100 MG Tab PO SCH (09:15)
[2022-12-25] MEDS: Nicotine 21 MG/24 Hr Patch TRDERM SCH (09:26)
[2022-12-26] MEDS: Piperacillin/Tazobactam 3.375 GM in Sodium Chloride 0.9% 100 ML IV SCH ×2 (01:07→05:52)
[2022-12-26] MEDS: Pantoprazole 40 MG Vial IVPUSH SCH (05:52)
[2022-12-26 06:49] LABS: BASOPHILS PERCENT AUTO 0.4 % (0.0-1.0); EOSINOPHILS PERCENT AUTO 0.1 % (1.0-3.0); HEMATOCRIT 42.6 % (40.0-54.0); HEMOGLOBIN 14.7 g/dL (14.0-18.0); LYMPHOCYTES PERCENT AUTO 16.7 % (20.5-50.1); MEAN CORPUSCULAR HEMOGLOBIN 29.5 pg (27.0-34.0); MEAN CORPUSCULAR HGB CONC 34.5 g/dL (33.0-35.0); MEAN CORPUSCULAR VOLUME 85.4 fL (80-100); MONOCYTES PERCENT AUTO 13.7 % (2-8); NEUTROPHILS PERCENT AUTO 69.1 % (42.2-75.2); PLATELET COUNT,PLT 205 10^3/uL (150-450); RED BLOOD CELL COUNT 4.99 10^6/uL (4.6-6.2); WHITE BLOOD CELL COUNT,WBC 9.2 10^3/uL (5.0-10.0)
[2022-12-26 07:11] LABS: ANION GAP 14.4 mEq/L (7-13); BILIRUBIN TOTAL 0.7 mg/dL (0.2-1.0); BUN/CREATININE RATIO 9.1 (No establ ref range); CALCIUM 8.8 mg/dL (8.5-10.1); CREATININE 1.21 mg/dL (0.70-1.30); EST CRCL DRUG DOSING (CG) 73.04 mL/min; MAGNESIUM 1.9 mg/dL (1.8-2.4); POTASSIUM,K 3.4 mmol/L (3.5-5.1); PROTEIN TOTAL,TP 6.9 g/dL (6.4-8.2)
[2022-12-26 07:13] LABS: A/G RATIO 0.77
[2022-12-26] MEDS: Insulin Lispro 100 Units/ML 3 ML Vial SUBCUT SCH (08:02)
[2022-12-26] MEDS: Nicotine 21 MG/24 Hr Patch TRDERM SCH (08:04)
[2022-12-26] MEDS: Multivitamin Tab PO SCH (08:10)
[2022-12-26] MEDS: Saccharomyces Boulardii (Probiotic) 250 MG Cap PO SCH (08:10)
[2022-12-26] MEDS: Folic Acid 1 MG Tab PO SCH (08:10)
[2022-12-26] MEDS: Divalproex Sodium 250 MG Tab.ER PO SCH (08:10)
[2022-12-26] MEDS: Thiamine 100 MG Tab PO SCH (08:10)
[2022-12-26] MEDS ORDERED: Potassium Chloride 10 MEQ Tab.ER PO ONE (09:51)
== END 2022-12-26 11:10 | DRG 100 ==
LOC: DL.ED 09:33 → DL.MS 11:47 → UNDOADMIN 12:07 → UNDODISIN 12-26 11:10
PROVIDERS: ADMIT Internal Medicine; ATTEND Internal Medicine
DX: G40.909 Epilepsy, unspecified, not intractable, without status epilepticus (principal); E11.9 Type 2 diabetes mellitus without complications; G40.901 Epilepsy, unspecified, not intractable, with status epilepticus; G92.8 Other toxic encephalopathy; J96.91 Respiratory failure, unspecified with hypoxia; E87.1 Hypo-osmolality and hyponatremia; E87.20 Acidosis, unspecified; R65.10 Systemic inflammatory response syndrome (SIRS) of non-infectious origin without acute organ dysfunction; E78.00 Pure hypercholesterolemia, unspecified; G93.89 Other specified disorders of brain; G31.9 Degenerative disease of nervous system, unspecified; I10 Essential (primary) hypertension; E78.5 Hyperlipidemia, unspecified; F32.A Depression, unspecified; K59.00 Constipation, unspecified; E87.8 Other disorders of electrolyte and fluid balance, not elsewhere classified; E11.65 Type 2 diabetes mellitus with hyperglycemia; E86.0 Dehydration; F12.10 Cannabis abuse, uncomplicated; E66.9 Obesity, unspecified; H91.90 Unspecified hearing loss, unspecified ear; F60.9 Personality disorder, unspecified; F17.200 Nicotine dependence, unspecified, uncomplicated; F10.90 Alcohol use, unspecified, uncomplicated; F41.9 Anxiety disorder, unspecified; E83.42 Hypomagnesemia; Z68.31 Body mass index [BMI] 31.0-31.9, adult; Z79.899 Other long term (current) drug therapy; Z79.84 Long term (current) use of oral hypoglycemic drugs; Z87.820 Personal history of traumatic brain injury; Z91.148 Patient's other noncompliance with medication regimen for other reason
CPT/HCPCS: 36415; 70450; 71045; 80053; 80164; 80305; 81001; 83605; 85025; 87040; 93005; A9270; J0696; J1953; J3370; J7030 ×2; J7050; 51702; 80202; 80307; 82947; 83735; 93010; 96361; 96365; 96375; 99284; 99285-25; C9113; J1815-GY; J2543; J3360; J3411; J3475; J3490; J7042; J7120

== ENCOUNTER 2023-05-27 23:07 | Observation (INO) | payer MEDICARE, OTHER, MEDICAID ==
[2023-05-27] MEDS ORDERED: LORazepam 2 MG/ML SDV ONE (23:15)
[2023-05-27] MEDS ORDERED: LORazepam 2 MG/ML SDV IVPUSH ONE (23:18)
[2023-05-27 23:34] LABS: BASOPHILS PERCENT AUTO 0.4 % (0.0-1.0); EOSINOPHILS PERCENT AUTO 0.1 % (1.0-3.0); HEMATOCRIT 40.1 % (40.0-54.0); HEMOGLOBIN 13.9 g/dL (14.0-18.0); LYMPHOCYTES PERCENT AUTO 8.4 % (20.5-50.1); MEAN CORPUSCULAR HEMOGLOBIN 29.4 pg (27.0-34.0); MEAN CORPUSCULAR HGB CONC 34.7 g/dL (33.0-35.0); MONOCYTES PERCENT AUTO 5.7 % (2-8); NEUTROPHILS PERCENT AUTO 85.4 % (42.2-75.2); PLATELET COUNT,PLT 203 10^3/uL (150-450); RED BLOOD CELL COUNT 4.72 10^6/uL (4.6-6.2)
[2023-05-27 23:45] LABS: APPEARANCE,URINE CLEAR (CLEAR); BILIRUBIN,URINE NEGATIVE (NEGATIVE); COLOR,URINE YELLOW (YELLOW); GLUCOSE,URINE 500 (NEGATIVE); KETONES,URINE TRACE (NEGATIVE); LEUKOCYTE ESTERASE,URINE NEGATIVE (NEGATIVE); NITRITE,URINE NEGATIVE (NEGATIVE); OCCULT BLOOD,URINE TRACE-INTACT (NEGATIVE); PROTEIN,URINE 100 (NEGATIVE); UROBILINOGEN,URINE 0.2 mg/dL (0.2-1.0)
[2023-05-27 23:46] LABS: AMPHETAMINES,URINE NEGATIVE (NEGATIVE); BARBITURATES,URINE NEGATIVE (NEGATIVE); BENZODIAZEPINE,URINE NEGATIVE (NEGATIVE); MDMA (ECSTASY), URINE NEGATIVE (NEGATIVE); METHADONE,URINE NEGATIVE (NEGATIVE); METHAMPHETAMINES,URINE NEGATIVE (NEGATIVE); OPIATES,URINE NEGATIVE (NEGATIVE); OXYCODONE,URINE NEGATIVE (NEGATIVE); PHENCYCLIDINE,URINE NEGATIVE (NEGATIVE); TCA,URINE NEGATIVE (NEGATIVE)
[2023-05-27 23:59] LABS: ALBUMIN 3.5 g/dL (3.4-5.0); ANION GAP 16.9 mEq/L (7-13); BILIRUBIN TOTAL 0.2 mg/dL (0.2-1.0); BUN/CREATININE RATIO 10.1 (No establ ref range); CALCIUM 8.2 mg/dL (8.5-10.1); CREATININE 1.09 mg/dL (0.70-1.30); EST CRCL DRUG DOSING (CG) 76.27 mL/min; MAGNESIUM 1.4 mg/dL (1.8-2.4); POTASSIUM,K 3.9 mmol/L (3.5-5.1); PROTEIN TOTAL,TP 7.1 g/dL (6.4-8.2)
[2023-05-28] MEDS ORDERED: Lactated Ringers 1,000 ML IV ONE (00:01)
[2023-05-28] MEDS ORDERED: levETIRAcetam in NaCl (iso-os) 3,000 MG in Premix Bag 1 BAG IV ONE ×2 (00:16)
[2023-05-28 00:18] LABS: BASE EXCESS ARTERIAL -2 mmol/L ((-2)-(+3)); BICARBONATE,ARTERIAL 23.3 mmol/L (22-26); O2 DELIVERY DEVICE NASAL CANNULA; O2 SATURATION ARTERIAL 98 % (95-100); PCO2 ARTERIAL 44 mmHg (35-45); PH,ARTERIAL 7.34 (7.35-7.45); PO2 ARTERIAL 94 mmHg (70-100)
[2023-05-28] MEDS ORDERED: levETIRAcetam in NaCl (iso-os) 1,500 MG in Premix Bag 1 BAG IV ONE ×2 (00:18)
[2023-05-28 00:19] LABS: ALLEN TEST PERFORMED
[2023-05-28 00:21] LABS: WBC,URINE 0-5 /HPF (0-5/HPF)
[2023-05-28 00:22] LABS: BACTERIA,URINE RARE /HPF (0-FEW/HPF); EPITHELIAL CELLS,URINE RARE /HPF (NOT SEEN)
[2023-05-28] MEDS ORDERED: Sodium Chloride 0.9% 1,000 ML IV STA (00:46)
[2023-05-28] MEDS ORDERED: Flumazenil 0.1 MG/ML 5 ML MDV IVPUSH PRN (05:27)
[2023-05-28] MEDS ORDERED: HYDROmorphone 0.5 MG/0.5 ML Syringe IVPUSH PRN (05:28)
[2023-05-28] MEDS ORDERED: Polyethylene Glycol 3350 Powder 17 GM Packet PO PRN (05:28)
[2023-05-28] MEDS ORDERED: Sennosides/Docusate Sodium 50-8.6 MG Tab PO PRN (05:28)
[2023-05-28] MEDS ORDERED: Ondansetron 4 MG/2 ML SDV IVPUSH PRN (05:28)
[2023-05-28] MEDS ORDERED: Acetaminophen/oxyCODONE 325-5 MG Tab PO PRN (05:28)
[2023-05-28] MEDS ORDERED: Acetaminophen 325 MG Tab PO PRN (05:28)
[2023-05-28] MEDS ORDERED: Magnesium Hydroxide 400 MG/5 ML Susp 30 ML Cup PO PRN (05:28)
[2023-05-28] MEDS ORDERED: Albuterol/Ipratropium 3.0-0.5 MG/3 ML Neb Soln NEB PRN (05:28)
[2023-05-28] MEDS ORDERED: Sodium Chloride 0.9% 10 ML Syringe FLUSH PRN (05:28)
[2023-05-28] MEDS ORDERED: Glucagon,Human Recombinant 1 MG Vial IM PRN (05:33)
[2023-05-28] MEDS ORDERED: 50% Dextrose in Water 50 ML Syringe IVPUSH PRN (05:33)
[2023-05-28] MEDS ORDERED: MVI, Adult with Vitamin K 10 ML, Folic Acid 1 MG, Thiamine 100 MG in Lactated Ringers 1... IV ONE ×4 (05:34)
[2023-05-28] MEDS ORDERED: Magnesium Sulfate/Water 2 GM in Premix Bag 1 BAG IV ONE (05:34)
[2023-05-28] MEDS ORDERED: hydrALAZINE 20 MG/ML SDV IVPUSH PRN (05:35)
[2023-05-28] MEDS ORDERED: Metoprolol Tartrate 5 MG/5 ML SDV IVPUSH PRN (05:35)
[2023-05-28] MEDS ORDERED: LORazepam 2 MG/ML SDV IVPUSH PRN (05:40)
[2023-05-28] MEDS ORDERED: Thiamine 100 MG in Sodium Chloride 0.9% 100 ML IV ONE (05:42)
[2023-05-28] MEDS: Insulin Lispro 100 Units/ML 3 ML Vial SUBCUT SCH ×2 (07:35→17:05)
[2023-05-28] MEDS: levETIRAcetam in NaCl (iso-os) 1,000 MG in Premix Bag 1 BAG IV SCH ×4 (09:07→21:21)
[2023-05-28] MEDS: Sodium Chloride 0.9% 10 ML Syringe FLUSH SCH ×2 (09:08→21:24)
[2023-05-28] MEDS: metFORMIN 500 MG Tab PO SCH ×2 (09:36→17:07)
[2023-05-28 10:08] LABS: ALANINE AMINOTRANSFERASE,ALT 10 U/L (16-63); ALKALINE PHOSPHATASE 54 U/L (46-116); ANION GAP 13.1 mEq/L (7-13); BILIRUBIN TOTAL 0.4 mg/dL (0.2-1.0); BLOOD UREA NITROGEN,BUN 9 mg/dL (7-18); BUN/CREATININE RATIO 11.5 (No establ ref range); CALCIUM 7.9 mg/dL (8.5-10.1); CARBON DIOXIDE,CO2 25 mmol/L (21-32); CHLORIDE,CL 98 mmol/L (98-107); CREATININE 0.78 mg/dL (0.70-1.30); EST CRCL DRUG DOSING (CG) 106.59 mL/min; GLUCOSE RANDOM 133 mg/dL (70-99); MAGNESIUM 2.1 mg/dL (1.8-2.4); POTASSIUM,K 4.1 mmol/L (3.5-5.1); SODIUM,NA 132 mmol/L (136-145)
[2023-05-28 10:09] LABS: ASPARTATE AMNIOTRANSFERASE,AST < 5 U/L (15-37); ESTIMATED GFR 103 mL/min (>=60)
[2023-05-28] MEDS: Divalproex Sodium 250 MG Tab.ER PO SCH ×2 (10:13→21:24)
[2023-05-28] MEDS: Sertraline 50 MG Tab PO SCH (10:13)
[2023-05-28] MEDS: Metoprolol Succinate 50 MG Tab.ER PO SCH (10:13)
[2023-05-28] MEDS ORDERED: OLANZapine 5 MG Tab PO SCH (21:00)
[2023-05-28] MEDS ORDERED: atorvaSTATin 10 MG Tab PO SCH (21:00)
[2023-05-29 06:44] LABS: BASOPHILS PERCENT AUTO 0.4 % (0.0-1.0); EOSINOPHILS PERCENT AUTO 1.1 % (1.0-3.0); HEMATOCRIT 38.7 % (40.0-54.0); HEMOGLOBIN 13.3 g/dL (14.0-18.0); LYMPHOCYTES PERCENT AUTO 33.2 % (20.5-50.1); MEAN CORPUSCULAR HEMOGLOBIN 29.6 pg (27.0-34.0); MEAN CORPUSCULAR HGB CONC 34.4 g/dL (33.0-35.0); MONOCYTES PERCENT AUTO 9.2 % (2-8); NEUTROPHILS PERCENT AUTO 56.1 % (42.2-75.2); PLATELET COUNT,PLT 179 10^3/uL (150-450); WHITE BLOOD CELL COUNT,WBC 7.1 10^3/uL (5.0-10.0)
[2023-05-29 07:11] LABS: ALBUMIN 3.1 g/dL (3.4-5.0); ANION GAP 15.2 mEq/L (7-13); BILIRUBIN TOTAL 0.3 mg/dL (0.2-1.0); BUN/CREATININE RATIO 13.3 (No establ ref range); CALCIUM 8.3 mg/dL (8.5-10.1); CREATININE 0.83 mg/dL (0.70-1.30); EST CRCL DRUG DOSING (CG) 100.17 mL/min; POTASSIUM,K 4.2 mmol/L (3.5-5.1); PROTEIN TOTAL,TP 6.3 g/dL (6.4-8.2)
[2023-05-29 07:12] LABS: A/G RATIO 0.97
[2023-05-29] MEDS: Insulin Lispro 100 Units/ML 3 ML Vial SUBCUT SCH (08:13)
[2023-05-29] MEDS: Sertraline 50 MG Tab PO SCH (08:35)
[2023-05-29] MEDS: metFORMIN 500 MG Tab PO SCH (08:36)
[2023-05-29] MEDS: Divalproex Sodium 250 MG Tab.ER PO SCH (08:36)
[2023-05-29] MEDS: Metoprolol Succinate 50 MG Tab.ER PO SCH (08:37)
[2023-05-29] MEDS: levETIRAcetam in NaCl (iso-os) 1,000 MG in Premix Bag 1 BAG IV SCH ×2 (09:21)
[2023-05-29] MEDS: Sodium Chloride 0.9% 10 ML Syringe FLUSH SCH (09:23)
== END 2023-05-29 12:30 | disposition other institution (70) ==
LOC: DL.ED 23:07 → DL.MS 05-28 05:09 → UNDOADMOB 05-28 05:09
PROVIDERS: ADMIT Internal Medicine; ATTEND Internal Medicine
DX: G40.409 Other generalized epilepsy and epileptic syndromes, not intractable, without status epilepticus (principal); E87.1 Hypo-osmolality and hyponatremia; E87.20 Acidosis, unspecified; I10 Essential (primary) hypertension; E11.9 Type 2 diabetes mellitus without complications; E78.5 Hyperlipidemia, unspecified; F32.A Depression, unspecified; E86.0 Dehydration; Z79.899 Other long term (current) drug therapy
CPT/HCPCS: 36415; 36600; 70450; 71045; 80053; 80164; 80305-QW; 81001; 82550; 82803; 82947; 83605; 83735; 84484; 85025; 93005; 96361; 96365; 96366; 96368; 96374; 96375; 96376; 99285-25; A9270-GY; G0378; J1815-GY; J1953; J2060; J3360; J3411; J3475; J3490; J7030; J7120